=== PATIENT | male | born 1970 | race Caucasian/White ===

== ENCOUNTER 2020-02-02 17:35 | Inpatient (IN) | payer MEDICAID, SELFPAY ==
[~2020-02-02] VITALS: Ht 182.9 cm; Wt 69.1 kg
[2020-02-02 18:25] LABS: HEMATOCRIT 39.6 % (42.0-52.0); HEMOGLOBIN 13.2 g/dl (13.5-17.5); MEAN CORPUSCULAR HGB CONC 33.3 g/dl (32.0-36.5); MEAN CORPUSCULAR VOLUME 96.1 fl (80.0-96.0); PLATELET COUNT, AUTOMATED 267 10^3/uL (150-450); RED BLOOD COUNT 4.12 10^6/uL (4.30-6.10); WHITE BLOOD COUNT 8.9 10^3/uL (4.0-10.0)
--- NOTE | 2020-02-02 18:43 | REPVR ---
PROCEDURE INFORMATION: Exam: XR Chest, 1 View Exam date and time: 02/02/2020 6:27 PM Age: 49 years old Clinical indication: Screening exam; Pre-operative exam; Other: Preop TECHNIQUE: Imaging protocol: XR of the chest Views: 1 view. COMPARISON: No relevant prior studies available. FINDINGS: Lungs: Thin linear opacity projects over the left lateral costophrenic angle. Granuloma in the left midlung field. Scarring at the right lung apex. Pleural space: Unremarkable. No pleural effusion. No pneumothorax. Heart/Mediastinum: Unremarkable. No cardiomegaly. Bones/joints: There is a fracture of the right posterior 9th rib. Intraperitoneal space: Small pneumoperitoneum. IMPRESSION: 1. Small pneumoperitoneum. 2. Fracture of the right posterior 9th rib. 3. Scarring at the right lung apex and left lateral costophrenic angle. Electronically signed by: Palmira Brooks On 02/02/2020 18:43:03 PM
[2020-02-02] MEDS ORDERED: UNASYN 3 GM VIAL As Ordered ONE (19:14)
[2020-02-02] MEDS ORDERED: AMPICILLIN SOD/SULBACTAM SOD 3 GM in D5W MINI-BAG PLUS 100 ML IV ONE (19:15)
[2020-02-02] MEDS ORDERED: BUPIVACAINE HCL 0.25% 30ML VIAL As Ordered ONE (19:19)
[2020-02-02] MEDS ORDERED: BUPIVACAINE LIPOSOME/PF 1.3% 20ML VIAL (13.3MG/ML)(EXPAREL)(C9290 PER1MG) As Ordered ONE (19:19)
[2020-02-02] MEDS ORDERED: propofoL 200 MG/20 ML VIAL As Ordered ONE (20:08)
[2020-02-02] MEDS ORDERED: ROCURONIUM BROMIDE 50 MG/5 ML VIAL As Ordered ONE (20:08)
[2020-02-02] MEDS ORDERED: LIDOCAINE 2% 100MG/5ML SDV (FOR ANES.) As Ordered ONE (20:08)
[2020-02-02] MEDS ORDERED: fentaNYL 100 MCG/2 ML INJECTION (J3010) As Ordered ONE (20:08)
[2020-02-02] MEDS ORDERED: dexameTHASONE 4 MG/ML 1ML VIAL (J1100 PER 1MG) As Ordered ONE (20:08)
[2020-02-02] MEDS ORDERED: MIDAZOLAM INJ 2MG/2ML VIAL (J2250 PER 1MG) As Ordered ONE (20:08)
[2020-02-02] MEDS ORDERED: SUGAMMADEX SODIUM 500 MG/5 ML VIAL (BRIDION) As Ordered ONE (20:09)
[2020-02-02] MEDS ORDERED: METOCLOPRAMIDE INJ 10MG/2ML VIAL (J2765 PER 1) As Ordered ONE (20:09)
[2020-02-02] MEDS ORDERED: ACETAMINOPHEN 1000MG 100ML IV BTL (OFIRMEV) (J0131 PER 10MG) As Ordered ONE (20:09)
[2020-02-02] MEDS ORDERED: ONDANSETRON 4MG/2ML VIAL As Ordered ONE (20:09)
[2020-02-02] MEDS ORDERED: HYDROmorphone HCL 2 MG/ML 1ML VIAL (J1170) As Ordered ONE (20:11)
[2020-02-02] MEDS ORDERED: PHENYLephrine HCL 500 MCG/5 ML (100MCG/ML) SYRINGE (J2370) As Ordered ONE (20:13)
[2020-02-02] MEDS ORDERED: ePHEDrine SULFATE 25 MG/5 ML(5MG/ML) SYRINGE As Ordered ONE (20:13)
[2020-02-02] MEDS ORDERED: MORPHINE 2 MG/ML 1ML VIAL (J2270) IV PRN (21:00)
[2020-02-02] MEDS ORDERED: ACETAMINOPHEN TAB 650MG DOSE (2X325MG) PO PRN (21:00)
[2020-02-02] MEDS ORDERED: IPRATROPIUM 0.5MG/ALBUTEROL 2.5MG INH SOL UD 3ML (DUONEB) NEB PRN (21:00)
[2020-02-02] MEDS ORDERED: ONDANSETRON 4MG/2ML VIAL IV PRN ×2 (21:00→21:30)
[2020-02-02] MEDS ORDERED: PERCOCET 5MG/325MG TAB PO PRN (21:00)
[2020-02-02] MEDS ORDERED: fentaNYL 100 MCG/2 ML INJECTION (J3010) IV PRN (21:30)
[2020-02-02] MEDS ORDERED: METOCLOPRAMIDE INJ 10MG/2ML VIAL (J2765 PER 1) IV PRN (21:30)
[2020-02-02] MEDS ORDERED: oxyCODONE 5MG TAB PO PRN (21:30)
[2020-02-02] MEDS ORDERED: LR 1,000 ML IV SCH (21:30)
[2020-02-02] MEDS ORDERED: MEPERIDINE INJ 25 MG/ML VIAL (J2175) IV PRN (21:30)
[2020-02-02 21:40] VITALS: BP 139/88
[2020-02-02] MEDS: NS 1,000 ML IV SCH (22:07)
[2020-02-02] MEDS: PANTOPRAZOLE 40MG VIAL (C9113 PER 1) IV SCH (22:07)
[2020-02-02 22:10] VITALS: BP 136/86
[2020-02-02 23:10] VITALS: BP 138/88
[2020-02-03] VITALS (7 sets, daily range): BP systolic 120–143; BP diastolic 63–89
[2020-02-03] MEDS: SUCRALFATE 1 GM TAB NG SCH ×5 (00:08→23:19)
[2020-02-03] MEDS: KETOROLAC 30 MG/ML 1ML VIAL IV SCH ×5 (00:08→23:19)
[2020-02-03] MEDS: AMPICILLIN SOD/SULBACTAM SOD 3 GM in D5W MINI-BAG PLUS 100 ML IV SCH ×4 (01:01→20:59)
[2020-02-03] MEDS: MORPHINE 2 MG/ML 1ML VIAL (J2270) IV PRN (03:46)
[2020-02-03 06:18] LABS: HEMATOCRIT 37.1 % (42.0-52.0); HEMOGLOBIN 12.2 g/dl (13.5-17.5); MEAN CORPUSCULAR HEMOGLOBIN 31.4 pg (27.0-33.0); MEAN CORPUSCULAR HGB CONC 32.9 g/dl (32.0-36.5); MEAN CORPUSCULAR VOLUME 95.6 fl (80.0-96.0); PLATELET COUNT, AUTOMATED 271 10^3/uL (150-450); RED BLOOD COUNT 3.88 10^6/uL (4.30-6.10); WHITE BLOOD COUNT 10.5 10^3/uL (4.0-10.0)
[2020-02-03] MEDS: NS 1,000 ML IV SCH ×2 (06:35→12:21)
[2020-02-03 06:39] LABS: BLOOD UREA NITROGEN 13 MG/DL (7-18); CALCIUM LEVEL 8.4 MG/DL (8.5-10.1); CARBON DIOXIDE LEVEL 26 MEQ/L (21-32); CHLORIDE LEVEL 108 MEQ/L (98-107); CREATININE FOR GFR 0.74 MG/DL (0.70-1.30); GLOMERULAR FILTRATION RATE > 60.0 (>60); GLUCOSE, FASTING 92 MG/DL (70-100); POTASSIUM SERUM 4.5 MEQ/L (3.5-5.1); SODIUM LEVEL 137 MEQ/L (136-145)
[2020-02-03] MEDS: IPRATROPIUM 0.5MG/ALBUTEROL 2.5MG INH SOL UD 3ML (DUONEB) NEB SCH ×4 (07:09→19:18)
[2020-02-03] MEDS ORDERED: CHLORASEPTIC SPRAY MT PRN (08:45)
[2020-02-03] MEDS: PANTOPRAZOLE 40MG VIAL (C9113 PER 1) IV SCH ×2 (09:20→21:01)
[2020-02-03] MEDS: PERCOCET 5MG/325MG TAB PO PRN ×4 (09:24→21:02)
[2020-02-03] MEDS: NICOTINE 21MG/24HR 1 EA TRANSDERMAL TD SCH (10:35)
[2020-02-03] MEDS ORDERED: diphenhydrAMINE 25MG CAP PO ONE (21:45)
[2020-02-04] MEDS: NS 1,000 ML IV SCH ×4 (01:13→20:04)
[2020-02-04] MEDS: IPRATROPIUM 0.5MG/ALBUTEROL 2.5MG INH SOL UD 3ML (DUONEB) NEB SCH ×4 (01:35→19:30)
[2020-02-04] MEDS: AMPICILLIN SOD/SULBACTAM SOD 3 GM in D5W MINI-BAG PLUS 100 ML IV SCH ×4 (01:48→20:04)
[2020-02-04] MEDS: MORPHINE 2 MG/ML 1ML VIAL (J2270) IV PRN (04:58)
[2020-02-04 05:54] LABS: HEMATOCRIT 34.3 % (42.0-52.0); HEMOGLOBIN 11.3 g/dl (13.5-17.5); MEAN CORPUSCULAR HEMOGLOBIN 31.4 pg (27.0-33.0); MEAN CORPUSCULAR HGB CONC 32.9 g/dl (32.0-36.5); MEAN CORPUSCULAR VOLUME 95.3 fl (80.0-96.0); PLATELET COUNT, AUTOMATED 234 10^3/uL (150-450); WHITE BLOOD COUNT 7.2 10^3/uL (4.0-10.0)
[2020-02-04 06:00] VITALS: BP 155/83
[2020-02-04] MEDS: KETOROLAC 30 MG/ML 1ML VIAL IV SCH ×4 (06:04→23:59)
[2020-02-04] MEDS: SUCRALFATE 1 GM TAB NG SCH ×4 (06:05→23:58)
[2020-02-04 06:14] LABS: BLOOD UREA NITROGEN 12 MG/DL (7-18); CALCIUM LEVEL 7.9 MG/DL (8.5-10.1); CARBON DIOXIDE LEVEL 25 MEQ/L (21-32); CHLORIDE LEVEL 108 MEQ/L (98-107); CREATININE FOR GFR 0.75 MG/DL (0.70-1.30); GLOMERULAR FILTRATION RATE > 60.0 (>60); GLUCOSE, FASTING 74 MG/DL (70-100); POTASSIUM SERUM 3.8 MEQ/L (3.5-5.1); SODIUM LEVEL 141 MEQ/L (136-145)
[2020-02-04] MEDS: PANTOPRAZOLE 40MG VIAL (C9113 PER 1) IV SCH ×2 (09:00→20:04)
[2020-02-04] MEDS: PERCOCET 5MG/325MG TAB PO PRN ×2 (09:00→17:49)
[2020-02-04] MEDS: NICOTINE 21MG/24HR 1 EA TRANSDERMAL TD SCH (09:01)
[2020-02-04 10:00] VITALS: BP 137/85
[2020-02-04] MEDS ORDERED: ISOVUE-300 61% 50ML VIAL As Ordered ONE ×2 (11:01→11:02)
--- NOTE | 2020-02-04 12:46 | IPN ---
DATE: 02/03/2020 Patient is postoperative day #1 from his perforated peptic ulcer. He had an oversewing of the ulcer with a Kain patch and overall from a pain control standpoint has been doing relatively well overnight, however he just feels like he has not gotten much sleep, his nasogastric (NG) tube is bothering him, but other than this he seems to be making some good progress. He has been afebrile. His white count is slightly elevated as expected this morning at 10.5, hematocrit has been good, and electrolytes as well. PHYSICAL EXAMINATION: Abdomen is soft, nontender, nondistended except at the incision where he has some mild tenderness. His dressing is clean and dry. His Reji-Rojas drain is draining some serosanguinous fluid. Extremities are well-perfused. Lungs are clear anteriorly. Heart is regular. IMPRESSION/PLAN: Patient is postoperative day #1 from a perforated duodenal ulcer repair and seems to be making some good progress. We will keep him nothing by mouth at this time with a nasogastric (NG) tube in place and will see how he does over the next 24-48 hours. Given that we had minimal soilage of intraperitoneal contents with minimal peritonitis, I anticipate he should start to resolve this issue over the next 24-48 hours. MARIA ALEJANDRA
[2020-02-04 14:00] VITALS: BP 136/85
[2020-02-04] MEDS: NICOTINE POLACRILEX 2 MG GUM PO PRN ×2 (17:50→22:53)
[2020-02-04 18:00] VITALS: BP 158/90
--- NOTE | 2020-02-04 18:40 | IPN ---
DATE: 02/04/2020 Patient is status post repair of perforated ulcer with a Kain patch. Overall has been doing well. No significant pain issues. His major complaint is the nasogastric (NG) tube. Today we ordered a small-bowel follow-through via the NG tube, which shows no evidence of leak on his study and has been doing well. He has been afebrile and he has had a little bit of serosanguineous fluid out of the Reji-Rojas (JAMESON) but no bilious drainage. No other significant amount. He has had no nausea, no vomiting. His abdomen is soft, nontender, nondistended. IMPRESSION AND PLAN: Patient is doing well at this point. My recommendation is that we discontinue the NG tube, but we just keep him on some sips of clears overnight. If he is doing well by the morning, will give him a clear liquid diet and then possibly be discharged home the following morning on a soft diet. He will continue with his current other supportive care. MARIA ALEJANDRA
[2020-02-04 22:00] VITALS: BP 120/83
[2020-02-05] MEDS: AMPICILLIN SOD/SULBACTAM SOD 3 GM in D5W MINI-BAG PLUS 100 ML IV SCH ×4 (01:39→22:00)
[2020-02-05 02:00] VITALS: BP 146/88
[2020-02-05] MEDS: IPRATROPIUM 0.5MG/ALBUTEROL 2.5MG INH SOL UD 3ML (DUONEB) NEB SCH ×4 (02:00→19:27)
[2020-02-05] MEDS: PERCOCET 5MG/325MG TAB PO PRN ×4 (02:01→22:56)
[2020-02-05] MEDS: KETOROLAC 30 MG/ML 1ML VIAL IV SCH ×3 (05:43→17:43)
[2020-02-05] MEDS: SUCRALFATE 1 GM TAB NG SCH ×3 (05:43→17:43)
[2020-02-05] MEDS: NS 1,000 ML IV SCH (05:43)
[2020-02-05 06:00] VITALS: BP 124/74
[2020-02-05 06:19] LABS: HEMATOCRIT 34.9 % (42.0-52.0); HEMOGLOBIN 11.8 g/dl (13.5-17.5); MEAN CORPUSCULAR HGB CONC 33.8 g/dl (32.0-36.5); MEAN CORPUSCULAR VOLUME 94.6 fl (80.0-96.0); PLATELET COUNT, AUTOMATED 258 10^3/uL (150-450); RED BLOOD COUNT 3.69 10^6/uL (4.30-6.10); WHITE BLOOD COUNT 5.4 10^3/uL (4.0-10.0)
[2020-02-05 06:43] LABS: BLOOD UREA NITROGEN 9 MG/DL (7-18); CALCIUM LEVEL 8.3 MG/DL (8.5-10.1); CARBON DIOXIDE LEVEL 28 MEQ/L (21-32); CHLORIDE LEVEL 108 MEQ/L (98-107); CREATININE FOR GFR 0.66 MG/DL (0.70-1.30); GLOMERULAR FILTRATION RATE > 60.0 (>60); GLUCOSE, FASTING 75 MG/DL (70-100); POTASSIUM SERUM 3.8 MEQ/L (3.5-5.1); SODIUM LEVEL 140 MEQ/L (136-145)
--- NOTE | 2020-02-05 08:33 | IPNPDOC ---
Text Note Date of Service The patient was seen on 02/05/20. NOTE No acute events overnight. He passed his UGI and had the NG out yesterday. Plan is for clq diet today, and then hopefully home tomorrow on soft diet. He has some shoulder pain, but no other complaints. Denies nausea, emesis, or fevers. He tolerated the sips and chips overnight without any drain changes or increase in pain. VSSAF Drain - 90cc/24 hours NAD abd - soft, TTP appropriate, incision c/d/i, drain serosanguinous labs - below A) 49y/o male s/p repair of perforated duodenal ulcer P) clq diet today dc ivf ambulate in halls plan on dc home tomorrow on soft diet if tolerating clears. Jah Romero DO VS,Thaddeus, I+O VS, Fishbone, I+O Laboratory Tests 02/05/20 05:53 Vital Signs Date Time Temp Pulse Resp B/P (MAP) Pulse Ox O2 Delivery O2 Flow Rate FiO2 02/05/20 06:00 97.8 52 18 124/74 (91) 97 Room Air I&O- Last 24 Hours up to 6 AM 02/05/20 06:00 Intake Total 2863 ml Output Total 1990 ml Balance 873 ml YANCY ROMERO DO Feb 05, 2020 08:33
[2020-02-05] MEDS: PANTOPRAZOLE 40MG VIAL (C9113 PER 1) IV SCH ×2 (08:44→21:59)
[2020-02-05] MEDS: NICOTINE 21MG/24HR 1 EA TRANSDERMAL TD SCH (08:44)
[2020-02-05 10:00] VITALS: BP 135/88
[2020-02-05] MEDS: NICOTINE POLACRILEX 2 MG GUM PO PRN (10:52)
[2020-02-05 14:00] VITALS: BP 131/84
[2020-02-05 18:00] VITALS: BP 137/88
[2020-02-05 22:00] VITALS: BP 125/79
[2020-02-06] MEDS: KETOROLAC 30 MG/ML 1ML VIAL IV SCH ×5 (00:10→23:50)
[2020-02-06] MEDS: SUCRALFATE 1 GM TAB NG SCH ×5 (00:11→23:50)
[2020-02-06 02:00] VITALS: BP 130/73
[2020-02-06] MEDS: IPRATROPIUM 0.5MG/ALBUTEROL 2.5MG INH SOL UD 3ML (DUONEB) NEB SCH ×4 (02:00→19:51)
[2020-02-06] MEDS: AMPICILLIN SOD/SULBACTAM SOD 3 GM in D5W MINI-BAG PLUS 100 ML IV SCH ×4 (02:59→19:33)
[2020-02-06 06:00] VITALS: BP 147/94
[2020-02-06 06:33] LABS: HEMATOCRIT 36.7 % (42.0-52.0); HEMOGLOBIN 12.1 g/dl (13.5-17.5); MEAN CORPUSCULAR HEMOGLOBIN 31.2 pg (27.0-33.0); MEAN CORPUSCULAR VOLUME 94.6 fl (80.0-96.0); PLATELET COUNT, AUTOMATED 245 10^3/uL (150-450); RED BLOOD COUNT 3.88 10^6/uL (4.30-6.10); WHITE BLOOD COUNT 5.3 10^3/uL (4.0-10.0)
[2020-02-06] MEDS: NICOTINE POLACRILEX 2 MG GUM PO PRN (06:33)
[2020-02-06] MEDS: PERCOCET 5MG/325MG TAB PO PRN ×3 (06:33→20:13)
[2020-02-06 07:02] LABS: BLOOD UREA NITROGEN 5 MG/DL (7-18); CALCIUM LEVEL 8.5 MG/DL (8.5-10.1); CARBON DIOXIDE LEVEL 30 MEQ/L (21-32); CHLORIDE LEVEL 106 MEQ/L (98-107); CREATININE FOR GFR 0.67 MG/DL (0.70-1.30); GLOMERULAR FILTRATION RATE > 60.0 (>60); GLUCOSE, FASTING 90 MG/DL (70-100); POTASSIUM SERUM 3.4 MEQ/L (3.5-5.1); SODIUM LEVEL 140 MEQ/L (136-145)
--- NOTE | 2020-02-06 08:03 | IPNPDOC ---
Text Note Date of Service The patient was seen on 02/06/20. NOTE No acute events overnight. Denies nausea, emesis, or fevers. He tolerated clear liquid diet overnight without any increase in pain, or change in the color of the drain. He did have increased drain output, but that is likely secondary to him increasing ambulation. VSSAF Drain - 240cc/24 hours NAD abd - soft, TTP appropriate, incision c/d/i, drain serosanguinous labs - below A) 49y/o male s/p repair of perforated duodenal ulcer P) soft diet today ambulate in halls plan on dc home tomorrow on soft diet if tolerating Jah Romero DO VS,Fishbone, I+O VS, Fishbone, I+O Laboratory Tests 02/06/20 06:20 Vital Signs Date Time Temp Pulse Resp B/P (MAP) Pulse Ox O2 Delivery O2 Flow Rate FiO2 02/06/20 07:03 18 95 Room Air 02/06/20 06:00 98.0 50 147/94 (111) I&O- Last 24 Hours up to 6 AM0 02/06/20 06:00 Intake Total 2875 ml Output Total 2485 ml Balance 390 ml YANCY ROMERO DO Feb 06, 2020 08:03
[2020-02-06] MEDS: PANTOPRAZOLE 40MG VIAL (C9113 PER 1) IV SCH ×2 (08:17→20:12)
[2020-02-06] MEDS: NICOTINE 21MG/24HR 1 EA TRANSDERMAL TD SCH (08:18)
[2020-02-06] MEDS ORDERED: POTASSIUM CHLORIDE 10 MEQ SR TABLET PO ONE (09:00)
[2020-02-06 10:00] VITALS: BP 140/86
[2020-02-06 14:00] VITALS: BP 139/88
[2020-02-06 18:00] VITALS: BP 136/88
[2020-02-06 22:00] VITALS: BP 136/86
[2020-02-07 02:00] VITALS: BP 133/83
[2020-02-07] MEDS: IPRATROPIUM 0.5MG/ALBUTEROL 2.5MG INH SOL UD 3ML (DUONEB) NEB SCH ×2 (02:00→07:06)
[2020-02-07] MEDS: AMPICILLIN SOD/SULBACTAM SOD 3 GM in D5W MINI-BAG PLUS 100 ML IV SCH ×2 (02:23→08:37)
[2020-02-07] MEDS: PERCOCET 5MG/325MG TAB PO PRN ×2 (02:25→11:07)
[2020-02-07 06:00] VITALS: BP 135/79
[2020-02-07] MEDS: SUCRALFATE 1 GM TAB NG SCH (06:10)
[2020-02-07] MEDS: KETOROLAC 30 MG/ML 1ML VIAL IV SCH (06:11)
[2020-02-07 06:16] LABS: HEMATOCRIT 35.5 % (42.0-52.0); MEAN CORPUSCULAR HEMOGLOBIN 32.3 pg (27.0-33.0); MEAN CORPUSCULAR HGB CONC 33.8 g/dl (32.0-36.5); MEAN CORPUSCULAR VOLUME 95.7 fl (80.0-96.0); PLATELET COUNT, AUTOMATED 263 10^3/uL (150-450); RED BLOOD COUNT 3.71 10^6/uL (4.30-6.10)
[2020-02-07 06:36] LABS: BLOOD UREA NITROGEN 11 MG/DL (7-18); CALCIUM LEVEL 8.4 MG/DL (8.5-10.1); CARBON DIOXIDE LEVEL 32 MEQ/L (21-32); CHLORIDE LEVEL 106 MEQ/L (98-107); CREATININE FOR GFR 0.82 MG/DL (0.70-1.30); GLOMERULAR FILTRATION RATE > 60.0 (>60); GLUCOSE, FASTING 91 MG/DL (70-100); SODIUM LEVEL 141 MEQ/L (136-145)
[2020-02-07] MEDS: PANTOPRAZOLE 40MG VIAL (C9113 PER 1) IV SCH (08:37)
[2020-02-07] MEDS: NICOTINE 21MG/24HR 1 EA TRANSDERMAL TD SCH (08:38)
[2020-02-07] MEDS ORDERED: PERCOCET PO (09:28)
[2020-02-07] MEDS ORDERED: OMEP40CA97 PO (09:28)
[2020-02-08] MEDS ORDERED: OMEPRAZOLE 20 MG CAP PO SCH (09:00)
--- NOTE | 2020-02-08 09:05 | RO ---
DATE OF OPERATION: 02/02/2020 PREOPERATIVE DIAGNOSIS: Perforated peptic ulcer. POSTOPERATIVE DIAGNOSIS: Perforated peptic ulcer (duodenal). PROCEDURE PERFORMED: Open repair of perforated duodenal ulcer with Kain patch. SURGEON: Mirza Mercado Jr., MD ANESTHESIA: General endotracheal anesthesia. ESTIMATED BLOOD LOSS: Minimal. FLUIDS: Crystalloid. BRIEF PROCEDURE SUMMARY: The patient was brought to the operating room and was given general anesthesia. After adequate anesthesia and preoperative antibiotics were given, the patient was prepped and draped in the usual sterile fashion. Next, a midline incision was made with skin knife. Electrocautery was used to cut the dermis and underlying subcutaneous tissue down to the fascia. The fascia was traversed and the peritoneum was entered and there was air at this point and some turbid fluid within the abdomen that was suctioned out. Next, retractors were used to elevate the liver edge and indeed there was a perforation in the bulb of the duodenum that was just past the pylorus. This was approximately 5-6 mm in size, the patient had not sealed this over at this time, it was leaking some clear fluid/gastric contents. This was closed with multiple interrupted 3-0 silks and then an omental tongue was brought up to this area and tied in place. The abdomen was copiously irrigated until clear. The midline incision was closed with #1 PDS in a running manner. Maria G were used to approximate the skin and Reji-Rojas drain that had been left in the bed of the dissection brought out through a lateral stab incision. Patient was awakened, extubated, brought to the recovery room awake, alert, hemodynamically stable. Sponge and needle counts correct times two. MTDD
--- NOTE | 2020-02-09 14:52 | REP ---
UPPER GI EXAMINATION This procedure was performed by WILBERTO Jenkins, under the direct supervision of Dr. Wall. The images were reviewed with Dr. Wall prior to dictation. The patient is status post perforated ulcer repair. This is a limited exam. Automotive Artist film shows an nasogastric (NG) tube in the fundus of the stomach. There is a surgical drain present. Surgical ramón are visualized to the right of midline. Approximately 100 mL of Isovue-300 was instilled via NG tube into the patients stomach. There is free flow of contrast into the stomach and small bowel. No extravasation of contrast was visualized. No stricture was visualized. IMPRESSION: No extravasation of contrast visualized during exam. 0.7 minutes of fluoroscopy time was utilized for this procedure. MARIA ALEJANDRA
--- NOTE | 2020-02-29 07:33 | DS ---
DATE OF ADMISSION: 02/02/2020 DATE OF DISCHARGE: 02/07/2020 PRINCIPAL DIAGNOSIS: Perforated ulcer. ASSOCIATED DIAGNOSIS: History of smoking. BRIEF HISTORY OF PRESENT ILLNESS: The patient is a 49-year-old male who presents with a perforated ulcer to an outlying hospital, was transferred here for operative intervention. HOSPITAL COURSE SUMMARY: The patient was admitted with the above diagnosis, was taken to the Operating Room and underwent an open repair of the perforated peptic ulcer. Postoperatively the patient did well. He had an NG tube in and eventually still had a fair bit of NG tube output, but eventually this was removed on the third postoperative day. He was started on a clear liquid diet, advanced to a regular diet and was discharged home. Prior to removing the NG tube, an upper GI series was performed which showed no evidence of leak. DISCHARGE MEDICATIONS: Medications at the time of discharge include the following: * Omeprazole 40 mg p.o. twice daily. * Percocet one tab q. 4 hours p.r.n. for pain. FOLLOW UP: He is to follow up in one week for staple removal and 2 weeks for reevaluation. MARIA ALEJANDRA
== END 2020-02-07 12:49 | disposition home or self-care (01) | DRG 223 ==
LOC: M ED 17:35 → M SDC 19:02 → M MSPAV 20:58
PROVIDERS: ADMIT Surgery; ATTEND Surgery
PROC: 0DU90JZ Supplement Duodenum with Synthetic Substitute, Open Approach (ICD-10-PCS; principal; 2020-02-02 20:00)
DX: K26.1 Acute duodenal ulcer with perforation (principal)